=== PATIENT | female | born 1980 | race Caucasian/White ===

== ENCOUNTER 2021-03-09 09:21 | Emergency (ER) | payer BC ==
[~2021-03-09] VITALS: Ht 170.2 cm; Wt 65.8 kg
[2021-03-09 09:29] VITALS: BP 143/95
--- NOTE | 2021-03-09 09:31 | NUR ---
TO ER BED 3, C/O HEAD LAC NOT ACTIVELY BLEEDING S/P HITTING A CABINET, AAOX4, BREATHING EVEN AND NON LABORED, FAMILY AT BEDSIDE
[2021-03-09] MEDS ORDERED: TDAP [DIPH/PERTUSSIS/TET] 0.5 ML VIAL IM ONE ×2 (10:00→10:05)
[2021-03-09] MEDS ORDERED: clonazePAM 0.5 MG TABLET ONE (10:06)
[2021-03-09] MEDS ORDERED: clonazePAM 1 MG TABLET PO ONE (10:30)
== END 2021-03-09 10:15 | disposition home or self-care (01) ==
LOC: ER 09:26
DX: S01.01XA Laceration without foreign body of scalp, initial encounter (principal); S09.8XXA Other specified injuries of head, initial encounter; F41.9 Anxiety disorder, unspecified; Z60.2 Problems related to living alone; W22.8XXA Striking against or struck by other objects, initial encounter; Y93.89 Activity, other specified; Y92.89 Other specified places as the place of occurrence of the external cause; Y99.8 Other external cause status
CPT/HCPCS: 90715